=== PATIENT | male | born 1970 | race Caucasian/White ===

== ENCOUNTER → 2018-07-08 10:28 | Outpatient (CLI) | payer OTHER, SELFPAY ==
--- NOTE | 2018-07-08 10:34 | XR_ITS ---
XR chest 2V HISTORY: Chest pain past 18 months but has had increased pain the last pass week. Mainly Left-sided chest pain ITS.REASON: CHEST PAIN, SOA. No cough ORDERING PHYSICIAN: Chely Bautista PATIENT AGE: 48 years Technique: PA and lateral chest COMPARISON: May 25, 2015, period. April 2015 CXR FINDINGS: The lungs are well expanded and clear. No consolidation. No focal pneumonia. No focal lesions. Normal pulmonary vascularity. The heart is normal in size. Radha and mediastinal structures satisfactory. Chest wall and T-spine appears satisfactory. On final review only questioned some very subtle pleural thickening or scant fluid along lateral aspect of left CP angle. Equivocal observation.. However No confirmation of the pleural fluid at posterior sulcus seen on on today's lateral view thus I doubt this this is of significance. IMPRESSION ... Lungs clear with nothing definite acute.
== END ==
PROVIDERS: PCP Nurse Practitioner Family; Visit Provider Nurse Practitioner Family
DX: R07.9 Chest pain, unspecified (principal); R06.02 Shortness of breath
CPT/HCPCS: 71046

== ENCOUNTER → 2018-09-06 12:27 | Outpatient (CLI) | payer OTHER, SELFPAY ==
--- NOTE | 2018-09-06 | US_ITS ---
US chest CLINICAL INDICATION: Abnormal outside CT scan showing adenopathy ITS.REASON: AXILLARY NODE SWELLING ORDERING PHYSICIAN: Boris Fitzgerald MD PATIENT AGE: 48 years Comparison: None FINDINGS: There are multiple enlarged lymph nodes in the right axillary region measuring up to 4 x 3 x 1.5 cm. These nodes have a hypoechoic appearance. No abscess. There is some increased blood flow to these lymph nodes. IMPRESSION: Right axillary adenopathy
--- NOTE | 2018-09-06 12:33 | US_ITS ---
US biopsy guidance Ultrasound FNA guidance HISTORY: Right axillary adenopathy ITS.REASON: rt axillary lymph node COMPARISON: 09/06/2018, 08/03/2018 ORDERING PHYSICIAN: Boris Fitzgerald MD PATIENT AGE: 48 years TECHNIQUE: Following obtaining informed consent, using aseptic technique and local anesthesia with buffered lidocaine, fine-needle aspiration was performed of the nodule of interest using sonographic guidance. One pass was made into the nodule with a 25-gauge needle. Specimen was given to cytology. Following this, 4 core biopsies were obtained with sonographic guidance of an enlarged lymph node in the right axilla. The patient tolerated the procedure well without evidence of immediate complications and left the ultrasound suite in stable condition. CYTOLOGY:Negative for malignant cells Pathology: Most consistent with follicular hyperplasia. IMPRESSION: Uneventful ultrasound-guided fine-needle aspiration and core biopsy of the right axillary adenopathy showing benign findings. Please see pathologist report
== END ==
PROVIDERS: PCP Internal Medicine Adolescent Medicine; Visit Provider Surgery
DX: R59.0 Localized enlarged lymph nodes (principal)
CPT/HCPCS: 10005; 76604; 76942

== ENCOUNTER → 2018-09-20 12:51 | Outpatient (CLI) | payer OTHER, SELFPAY ==
[2018-09-20 13:10] LABS: Basophils # 0.1 K/mm3 (0-0.2); Basophils % 0.9 % (0.1-2.0); Eosinophils # 0.3 K/mm3 (0.0-0.4); Eosinophils % 4.7 % (0.1-12.0); Hematocrit 45.9 % (42.0-52.0); Hemoglobin 15.9 g/dL (14.1-18.0); Lymphocytes # 2.3 K/mm3 (0.7-4.5); Lymphocytes % 31.9 % (10-50); Mean Corpuscular HGB Conc 34.6 g/dL (31.8-35.4); Mean Corpuscular Hemoglobin 29.7 pg (27.0-31.2); Mean Corpuscular Volume 85.8 fl (80-94); Mean Platelet Volume 9.7 fl (7.4-10.4); Monocytes # 0.4 K/mm3 (0.1-1.0); Monocytes % 6.2 % (1.7-9.3); Neutrophils % 56.3 % (37.0-80.0); Platelet Count 183 K/mm3 (142-424); Red Blood Count 5.35 M/mm3 (4.60-6.20); Red Cell Distribution Width 13.5 % (11.5-17.5)
[2018-09-20 13:47] LABS: D-Dimer < 100 ng/mL (0-400)
[2018-09-20 14:13] LABS: Alanine Aminotransferase 49 U/L (12-78); Albumin Level 3.7 gm/dL (3.4-5.0); Albumin/Globulin Ratio 1.4 (1.1-1.8); Alkaline Phosphatase 62 U/L (46-116); Anion Gap 11.1 mEq/L (5-15); Aspartate Amino Transferase 21 U/L (15-37); Bilirubin,Total 0.6 mg/dL (0.2-1.0); Blood Urea Nitrogen 22 mg/dL (7-18); Calcium 8.8 mg/dL (8.5-10.1); Carbon Dioxide 29 mmol/L (21.0-32.0); Chloride 104 mmol/L (98-107); Estimated Glomerular Filt Rate 71 ml/min (>60); GFR (African American) 86 ML/MIN (>60); Globulin 2.6 gm/dl (1.3-3.2); Glucose 74 mg/dL (74-106); Potassium 4.1 mmoL/L (3.5-5.1); Sodium 140 mmol/L (136-145); Total Protein,Serum 6.3 gm/dL (6.4-8.2)
[2018-09-20 15:25] LABS: Erythrocyte Sedimentation Rate 3 mm/hr (0-15)
[2018-09-21 13:24] LABS: Anti-Centromere B Antibodies <0.2 AI (0.0-0.9); Anti-Jo-1 <0.2 AI (0.0-0.9); Anti-Smith Antibody <0.2 AI (0.0-0.9); Antichromatin Antibodies <0.2 AI (0.0-0.9); Antiscleroderma-70 Antibodies <0.2 AI (0.0-0.9); RNP Antibodies 0.3 AI (0.0-0.9); Sjogren's Anti-SS-A <0.2 AI (0.0-0.9); Sjogren's Anti-SS-B <0.2 AI (0.0-0.9)
[2018-09-22 13:17] LABS: Angiotensin Converting Enzyme 46 U/L (14-82); Anti-DNA (DS) Ab Qn <1 IU/mL (0-9)
[2018-09-24 17:22] LABS: QuantiFERON-TB Gold Plus Negative (Negative)
== END ==
PROVIDERS: Visit Provider Internal Medicine Adolescent Medicine
DX: R06.02 Shortness of breath (principal); R07.9 Chest pain, unspecified; I88.9 Nonspecific lymphadenitis, unspecified
CPT/HCPCS: 36415; 80053; 82164; 85025; 85378; 85651; 86225; 86235; 86480

== ENCOUNTER 2021-03-03 12:02 | Emergency (ER) | payer OTHER, SELFPAY ==
[2021-03-03 12:03] VITALS: BP 183/104; PULSE 68; RESP 16; TEMP 36.6; O2SAT 98; BMI 31.6
--- NOTE | 2021-03-03 12:16 | HMH.EDGENADL ---
ED Disposition Clinical Impression: Hypertension Qualifiers: Hypertension type: unspecified Qualified Code(s): I10 - Essential (primary) hypertension Disposition: Home, Self-Care Condition on Discharge: Good Additional Instructions: Home medications as directed. Follow-up PCP 1 to 2 days. Return emerge for shortness of breath, chest pain, breaking out in cold sweat. Referrals: Ying Fraser [Primary Care Provider] - 3 days Time of Disposition: 14:21 - Critical Care Critical Care Time: No Attestation: On , the high probability of a clinically significant, sudden or life threatening deterioration of the following system(s) required my full and direct attention, intervention and personal management. The time I documented below is in addition to time spent performing reported procedures but includes the following listed in this critical care notation. Medical Decision Making - Medical Records Medical records reviewed: Yes: I reviewed the patient's medical records. - Parish Inquiry Pt receiving controlled substance: No Vital Signs: 03/03/21 12:03 03/03/21 12:21 Temperature 98 F Temperature Source Oral Pulse Rate [Radial] 68 Respiratory Rate 16 Blood Pressure 170/99 H Blood Pressure [Right Arm] 183/104 H Blood Pressure Mean [Right Arm] 130 Blood Pressure Position [Right Arm] Sitting 02 Sat by Pulse Oximetry 98 Oxygen Delivery Method Room Air - Lab Data Lab results reviewed: Yes: I reviewed the patient's lab results. Lab Results 03/03/21 12:55: WBC 5.4, RBC 6.63 H, Hgb 19.5 H, Hct 59.4 H, MCV 89.6, MCH 29.4, MCHC 32.8, RDW 13.7, Plt Count 199, MPV 10.5 H, Neut % (Auto) 60.7, Lymph % (Auto) 27.6, [place] % (Auto) 6.8, Eos % (Auto) 2.7, Baso % (Auto) 2.2 H, Neut # (Auto) 3.3, Lymph # (Auto) 1.5, [place] # (Auto) 0.4, Eos # (Auto) 0.1, Baso # (Auto) 0.1 03/03/21 12:55: Sodium 139, Potassium 4.4, Chloride 101, Carbon Dioxide 29, Anion Gap 13.4, BUN 15, Creatinine 1.10, Estimated Creat Clear 97, Estimated GFR 71, Est GFR ( Amer) 85, Glucose 95, Calcium 9.4, Troponin I < 0.01 Result diagrams: 03/03/21 12:55 03/03/21 12:55 Orders (Tests/Meds): ED MEDICATIONS Generic Name Dose Route Start Last Admin Trade Name Mark PRN Reason Stop Dose Admin Sodium Chloride 1,000 mls @ 999 mls/hr 03/03/21 13:45 03/03/21 13:48 Sod Chlor 0.9% 1000ml Bag IV 03/03/21 14:45 999 mls/hr .Q1H1M JULIO CESAR Administration ORDERS Category Date Time Status XR chest portable Stat Exams 03/03/21 13:14 Taken Troponin I Q3H Lab 03/03/21 15:45 Ordered Troponin I Q3H Lab 03/03/21 18:45 Ordered - Radiology Data #1 Image(s): Chest Image Reviewed: Yes I reviewed the patient's radiology results Preliminary Findings: Normal/NAD - ECG Data Tracing #1 I reviewed this ECG and interpreted as documented below: Normal sinus rhythm, 60 bpm, no ST elevation or depression, normal intervals, no ectopy. Tall T waves noted in V3, V4, V5. ECG initial impression date: 03/03/21 ECG initial impression time: 12:56 Medical Decision Narrative: 50yo M evaluated for hypertension. Patient's presenting blood pressure is 170/100. He is in no acute distress. EKG is reviewed as above. BMP, CBC, troponin are collected and nonactionable. Chest x-ray is benign on my read. Patient's blood pressure has trended down is now 140s over 90s. On reevaluation, the patient reports he is feeling well. Reviewed all findings with patient at bedside. Encouraged to follow-up with his PCP for further monitoring of his blood pressure. General Adult HPI - General Stated complaint: elevated BP Time Seen by Provider: 03/03/21 12:16 Source of Information: Patient Limitations: No Limitations - History of Present Illness HPI narrative: 50yo M presents the emergency department secondary to hypertension. Patient reports he is taking his blood pressure medication as directed. He denies any new medications. Patient complains of left-side
[2021-03-03 12:21] VITALS: BP 170/99
--- NOTE | 2021-03-03 12:50 | ECG_ITS ---
APPROVED REPORT Exam: Resting ECG HR:60 bpm ECG Measurements Heart Rate 60 AXES HI 140 P 64 QRSd 84 QRS 45 QT 382 T 52 QTc 382 Conclusion Normal sinus rhythm with sinus arrhythmia Normal ECG Electronically signed by : Ole Morse MD 03/03/2021 20:14:42
--- NOTE | 2021-03-03 13:14 | XR_ITS ---
PROCEDURE: XR CHEST PORTABLE CLINICAL HISTORY: cp COMPARISON: CR CXR CHEST(2 VIEWS-NOT PORTABLE) from 05/25/2015 CR CXR2V XR chest 2V from 07/08/[address] CHEST WITH from 08/03/2018 CR XR CHEST 2V from 06/18/2019 FINDINGS: The cardiomediastinal silhouette and pulmonary vascularity are within normal limits. The lungs are clear without infiltrates, suspicious nodules, or pleural effusions. No acute bony abnormalities. IMPRESSION: No acute findings. Dictated by: Quan Barrera MD 03/03/2021 14:42 Quan Barrera MD in [facility] 03/03/2021 14:42
[2021-03-03 13:16] LABS: Basophils # 0.1 K/mm3 (0-0.2); Basophils % 2.2 % (0.1-2.0); Eosinophils # 0.1 K/mm3 (0.0-0.4); Eosinophils % 2.7 % (0.1-12.0); Hematocrit 59.4 % (42.0-52.0); Lymphocytes # 1.5 K/mm3 (0.7-4.5); Lymphocytes % 27.6 % (10-50); Mean Corpuscular HGB Conc 32.8 g/dL (31.8-35.4); Mean Corpuscular Hemoglobin 29.4 pg (27.0-31.2); Mean Corpuscular Volume 89.6 fl (80-94); Mean Platelet Volume 10.5 fl (7.4-10.4); Monocytes # 0.4 K/mm3 (0.1-1.0); Monocytes % 6.8 % (1.7-9.3); Neutrophils # 3.3 K/mm3 (1.8-7.8); Neutrophils % 60.7 % (37.0-80.0); Platelet Count 199 K/mm3 (142-424); Red Blood Count 6.63 M/mm3 (4.60-6.20); Red Cell Distribution Width 13.7 % (11.5-17.5); White Blood Count 5.4 K/mm3 (4.8-10.8)
[2021-03-03 13:24] LABS: Chloride 101 mmol/L (98-107); Potassium 4.4 mmoL/L (3.5-5.1); Sodium 139 mmol/L (136-145)
[2021-03-03 13:27] LABS: Anion Gap 13.4 mEq/L (5-15); Blood Urea Nitrogen 15 mg/dl (9-20); Calcium 9.4 mg/dl (8.4-10.2); Carbon Dioxide 29 mmol/L (22.0-30.0); Creatinine Clearance Estimated 97 mL/min (50-200); Estimated Glomerular Filt Rate 71 ml/min (>60); GFR (African American) 85 ML/MIN (>60); Glucose 95 mg/dl (74-100)
[2021-03-03 13:35] LABS: Hemoglobin 19.5 g/dL (14.1-18.0)
[2021-03-03 13:41] LABS: Troponin I < 0.01 ng/ml (0.00-0.034)
[2021-03-03 15:06] VITALS: BP 152/88; PULSE 63; RESP 20; TEMP -13.1; TEMP 8.5; O2SAT 99
== END 2021-03-03 14:30 | disposition home or self-care (01) ==
PROVIDERS: Emergency Provider Family Medicine; PCP Family Medicine
DX: R51.9 Headache, unspecified (principal); I10 Essential (primary) hypertension; E78.5 Hyperlipidemia, unspecified; Z79.899 Other long term (current) drug therapy
CPT/HCPCS: 71045; 80048; 84484; 85025; 93005; 96365; 99283

== ENCOUNTER → 2021-04-13 18:31 | Outpatient (CLI) | payer OTHER, SELFPAY | PROVIDERS: PCP Family Medicine; Visit Provider Nurse Practitioner Family | DX: Z20.822 Contact with and (suspected) exposure to COVID-19 (principal) | CPT/HCPCS: C9803; U0003; U0005 ==

== ENCOUNTER → 2021-05-07 12:00 | Outpatient (CLI) | payer OTHER, SELFPAY | PROVIDERS: Visit Provider Nurse Practitioner | DX: U07.1 COVID-19 (principal) | CPT/HCPCS: C9803; U0003; U0005 ==

== ENCOUNTER 2021-06-24 17:53 | Emergency (ER) | payer OTHER, SELFPAY ==
[2021-06-24 17:54] VITALS: BP 112/66; PULSE 127; RESP 16; TEMP 36.9; O2SAT 97; BMI 30.7
--- NOTE | 2021-06-24 18:30 | PC.NURSE ---
Pt placed in triage room. RAJENDRA Saucedo went in and obtained vitals 103/67, 120, 98% on room air PT stable, advised him no beds at this time and we would get him to a room as soon as we could. Pt verbalizes understanding. In bathroom at this time attempting to give stool sample.
[2021-06-24 19:40] VITALS: BMI 30.7
--- NOTE | 2021-06-24 19:40 | CT_ITS ---
PROCEDURE INFORMATION: Exam: CT Abdomen And Pelvis With Contrast Exam date and time: 06/24/2021 7:40 PM Age: 51 years old Clinical indication: Abdominal pain; Patient HX: Pain & diarrhea x2 days; Additional info: Abd pain TECHNIQUE: Imaging protocol: Computed tomography of the abdomen and pelvis with contrast. Radiation optimization: All CT scans at this facility use at least one of these dose optimization techniques: automated exposure control; mA and/or kV adjustment per patient size (includes targeted exams where dose is matched to clinical indication); or iterative reconstruction. Contrast material: ISOVUE; Contrast volume: 75 ml; Contrast route: IV; COMPARISON: CT CHEST WITH 08/03/2018 10:51 AM FINDINGS: Liver: Normal. No mass. Gallbladder and bile ducts: Normal. No calcified stones. No ductal dilation. Pancreas: Normal. No ductal dilation. Spleen: Normal. No splenomegaly. Adrenal glands: Normal. No mass. Kidneys and ureters: Normal. No hydronephrosis. Stomach and bowel: Air-fluid levels in the cecum and ascending colon and transverse colon likely reflecting diarrhea. No wall thickening. No small bowel obstruction. Appendix: Normal appendix. Intraperitoneal space: Unremarkable. No free air. No significant fluid collection. Vasculature: Unremarkable. No abdominal aortic aneurysm. Lymph nodes: Unremarkable. No enlarged lymph nodes. Urinary bladder: Unremarkable as visualized. Reproductive: Unremarkable as visualized. Bones/joints: Unremarkable. No acute fracture. Soft tissues: Small right inguinal hernia with fat. IMPRESSION: 1. Air-fluid levels in the cecum and ascending colon as well as transverse colon likely reflecting diarrhea. No wall thickening to suggest severe colitis. 2. No small bowel obstruction. 3. Normal kidneys. 4. Normal gallbladder. 5. Normal appendix.
[2021-06-24 19:55] LABS: Basophils % 0.7 % (0.1-2.0); Eosinophils # 0.1 K/mm3 (0.0-0.4); Eosinophils % 1.6 % (0.1-12.0); Hematocrit 53.5 % (42.0-52.0); Hemoglobin 17.4 g/dL (14.1-18.0); Lymphocytes # 0.3 K/mm3 (0.7-4.5); Mean Corpuscular HGB Conc 32.5 g/dL (31.8-35.4); Mean Corpuscular Hemoglobin 29.4 pg (27.0-31.2); Mean Corpuscular Volume 90.5 fl (80-94); Mean Platelet Volume 9.7 fl (7.4-10.4); Monocytes # 0.2 K/mm3 (0.1-1.0); Neutrophils # 5.4 K/mm3 (1.8-7.8); Neutrophils % 89.6 % (37.0-80.0); Platelet Count 192 K/mm3 (142-424); Red Blood Count 5.91 M/mm3 (4.60-6.20); Red Cell Distribution Width 14.8 % (11.5-17.5); White Blood Count 6.1 K/mm3 (4.8-10.8)
[2021-06-24 20:02] LABS: Alanine Aminotransferase 43 U/L (12-78); Albumin/Globulin Ratio 1.7 (1.1-1.8); Alkaline Phosphatase 64 U/L (38-126); Amylase 55 U/L (30-110); Aspartate Amino Transferase 54 U/L (17-59); Bilirubin,Total 1.2 mg/dl (0.2-1.3); Blood Urea Nitrogen 24 mg/dl (9-20); Calcium 9.2 mg/dl (8.4-10.2); Carbon Dioxide 23 mmol/L (22.0-30.0); Creatinine Clearance Estimated 64 mL/min (50-200); Estimated Glomerular Filt Rate 46 ml/min (>60); GFR (African American) 55 ML/MIN (>60); Glucose 154 mg/dl (74-100); Lipase 46 U/L (23-300); Sodium 137 mmol/L (136-145)
[2021-06-24 20:09] LABS: MANUAL DIFFERENTIAL MANUAL DIFFERENTIAL (MANUAL DIFF)
[2021-06-24 20:17] LABS: Coronavirus 19, PCR Not Detected (NotDetected); Influenza A, PCR Not Detected (NotDetected)
[2021-06-24 20:18] LABS: Influenza B, PCR Not Detected (NotDetected)
[2021-06-24 20:21] LABS: Erythrocyte Sedimentation Rate 1 mm/hr (0-20)
[2021-06-24 20:56] LABS: Chloride 99 mmol/L (98-107)
[2021-06-24 20:59] LABS: Eosinophils % 1 % (0-3); Lymphocytes % 6 % (10-50); Monocytes % 1 % (2-9); Neutrophils % 92 % (42-76); Platelet Estimate Normal; RBC Morphology Normal; Total Cells Counted 100
--- NOTE | 2021-06-24 21:01 | HMH.EDNVD ---
ED Disposition Clinical Impression: Gastroenteritis Disposition: Home, Self-Care Condition on Discharge: Good Instructions: DI for Diarrhea and Traveler's Diarrhea -- Adult Additional Instructions: fluids and specimen as op Referrals: Ying Fraser [Primary Care Provider] - - Critical Care Critical Care Time: No Attestation: On 06/24/21, the high probability of a clinically significant, sudden or life threatening deterioration of the following system(s) required my full and direct attention, intervention and personal management. The time I documented below is in addition to time spent performing reported procedures but includes the following listed in this critical care notation. Medical Decision Making - Medical Records Medical records reviewed: Yes: I reviewed the patient's medical records. - Parish Inquiry Pt receiving controlled substance: No Vital Signs: 06/24/21 17:54 Temperature 98.5 F Temperature Source Oral Pulse Rate [Left] 127 H Respiratory Rate 16 Blood Pressure [Right Arm] 112/66 Blood Pressure Mean [Right Arm] 81 02 Sat by Pulse Oximetry 97 Oxygen Delivery Method Room Air - Lab Data Lab results reviewed: Yes: I reviewed the patient's lab results. Lab Results 06/24/21 19:30: WBC 6.1, RBC 5.91, Hgb 17.4, Hct 53.5 H, MCV 90.5, MCH 29.4, MCHC 32.5, RDW 14.8, Plt Count 192, MPV 9.7, Neut % (Auto) 89.6 H, Lymph % (Auto) 5.0 L, [place] % (Auto) 3.0, Eos % (Auto) 1.6, Baso % (Auto) 0.7, Neut # (Auto) 5.4, Lymph # (Auto) 0.3 L, [place] # (Auto) 0.2, Eos # (Auto) 0.1, Baso # (Auto) 0.0, Total Counted 100, Neutrophils % (Manual) 92 H, Lymphocytes % (Manual) 6 L, Monocytes % (Manual) 1 L, Eosinophils % (Manual) 1, Platelet Estimate Normal, RBC Morphology Normal, ESR 1 06/24/21 19:30: Sodium 137, Potassium 4.0, Chloride 99, Carbon Dioxide 23, Anion Gap 19.0 H, BUN 24 H, Creatinine 1.60 H, Estimated Creat Clear 64, Estimated GFR 46 L, Est GFR ( Amer) 55 L, Glucose 154 H, Calcium 9.2, Total Bilirubin 1.2, AST 54, ALT 43, Alkaline Phosphatase 64, C-Reactive Protein 47.4 H, Total Protein 8.0, Albumin 5.0, Globulin 3.0, Albumin/Globulin Ratio 1.7, Amylase 55, Lipase 46, Procalcitonin 2.68 H 06/24/21 20:07: SARS-CoV-2 (PCR) Not detected, Influenza A Untype (PCR) Not detected, Influenza Type B (PCR) Not detected Result diagrams: 06/24/21 19:30 06/24/21 19:30 Orders (Tests/Meds): ED MEDICATIONS Generic Name Dose Route Start Last Admin Trade Name Freq PRN Reason Stop Dose Admin Sodium Chloride 1,000 mls @ 999 mls/hr 06/24/21 19:45 06/24/21 19:49 Sod Chlor 0.9% 1000ml Bag IV 06/24/21 20:45 999 mls/hr .Q1H1M JULIO CESAR Administration Sodium Chloride 1,000 mls @ 999 mls/hr 06/24/21 21:15 06/24/21 21:03 Sod Chlor 0.9% 1000ml Bag IV 06/24/21 22:15 999 mls/hr .Q1H1M JULIO CESAR Administration Sodium Chloride 8 ml 06/24/21 19:42 Sodium Chloride 0.9% 10ml Vial IV 07/24/21 19:41 NEEDED PRN dilute pepcid Discontinued Medications Generic Name Dose Route Start Last Admin Trade Name Freq PRN Reason Stop Dose Admin Famotidine 20 mg 06/24/21 19:42 06/24/21 19:49 Famotidine 20mg/2ml Vial IV 06/24/21 19:43 20 mg ONCE ONE Administration Iopamidol 75 ml 06/24/21 20:23 06/24/21 20:24 Iopamidol-370 (76%);100ml Bottle IV 06/24/21 20:24 75 ml ONCE ONE Administration Metoclopramide HCl 10 mg 06/24/21 19:42 06/24/21 19:49 Metoclopramide Hcl 10mg/2ml Vial IVP 06/24/21 19:43 10 mg ONCE ONE Administration Ondansetron HCl 4 mg 06/24/21 19:42 06/24/21 19:49 Ondansetron 4mg/2ml Vial IV 06/24/21 19:43 4 mg ONCE ONE Administration Sodium Chloride 10 ml 06/24/21 20:23 06/24/21 20:24 Sodium Chloride 0.9% 10ml Syr (Rad Only) IV 06/24/21 20:24 10 ml ONCE ONE Administration ORDERS Category Date Time Status Diarrhea 23 Panel, PCR Stat Lab 06/24/21 19:40 Ordered Urinalysis and Microscopic Stat Lab 06/24/21 19:40 Ordered - CT Data
[2021-06-24 21:05] LABS: C-Reactive Protein 47.4 mg/L (0-4)
[2021-06-24 21:35] LABS: Procalcitonin 2.68 ng/mL (0.0-2.0)
[2021-06-24 21:59] VITALS: BP 114/80; PULSE 109; RESP 14; TEMP 37.1; O2SAT 97
== END 2021-06-24 22:10 | disposition home or self-care (01) ==
PROVIDERS: Student in an Organized Health Care Education/Training Program; Emergency Provider Emergency Medicine; PCP Family Medicine
DX: K52.9 Noninfective gastroenteritis and colitis, unspecified (principal); I10 Essential (primary) hypertension; E78.5 Hyperlipidemia, unspecified
CPT/HCPCS: 74177; 80053; 82150; 83690; 84145; 85007; 85025; 85651; 86140; 99283; C9803; J2405; Q9967; U0003; U0005

== ENCOUNTER → 2021-06-25 09:24 | Outpatient (CLI) | payer OTHER, SELFPAY ==
[2021-06-25 10:08] LABS: Adenovirus F 40/41, stool Not Detected (NotDetected); Astrovirus Not Detected (NotDetected); Campylobacter Not Detected (NotDetected); Clostridium Difficile A/B, PCR Not Detected (NotDetected); Cryptosporidium Not Detected (NotDetected); Cyclospora Cayetanesis Not Detected (NotDetected); Entamoeba histolytica Not Detected (NotDetected); Enteroaggregative E coli Not Detected (NotDetected); Enteropathogenic E coli Not Detected (NotDetected); Enterotoxigenic E coli Not Detected (NotDetected); Giardia lamblia Not Detected (NotDetected); Norovirus Not Detected (NotDetected); Plesimonas Shigalloides, PCR Not Detected (NotDetected); Salmonella, PCR Not Detected (NotDetected); Sapovirus Not Detected (NotDetected); Shiga-like toxin E coli Not Detected (NotDetected); Shigella Enterovasive E coli Not Detected (NotDetected); Vibrio Cholerae Not Detected (NotDetected); Vibrio, PCR Not Detected (NotDetected); Yersinia Entercolitica, PCR Not Detected (NotDetected)
[2021-06-25 17:10] LABS: Rotavirus A Detected (NotDetected)
== END ==
PROVIDERS: PCP Family Medicine; Visit Provider Emergency Medicine
DX: R19.7 Diarrhea, unspecified (principal); A08.0 Rotaviral enteritis
CPT/HCPCS: 87507